=== PATIENT | female | born 1975 | race African-American/Black ===

== ENCOUNTER 2017-03-13 23:02 | Emergency (ER) | payer OTHER ==
[2017-03-14 00:43] VITALS: BP 194/99
== END 2017-03-14 00:43 | disposition home or self-care (01) ==
LOC: ED 23:02
DX: S40.011A Contusion of right shoulder, initial encounter (principal); E11.9 Type 2 diabetes mellitus without complications; I10 Essential (primary) hypertension; E78.00 Pure hypercholesterolemia, unspecified; Z79.84 Long term (current) use of oral hypoglycemic drugs; Z88.8 Allergy status to other drugs, medicaments and biological substances; W20.8XXA Other cause of strike by thrown, projected or falling object, initial encounter; Y93.89 Activity, other specified; Y99.8 Other external cause status; Y92.89 Other specified places as the place of occurrence of the external cause